=== PATIENT | female | born 1940 | race American Indian/Alaskan Native ===

== ENCOUNTER 2017-04-08 07:59 | Inpatient (IN) | payer MEDICARE ==
[2017-04-08 09:39] LABS: Basophils % (Auto) 1.2 % (0.0-1.8); Eosinophils % (Auto) 4.1 % (0.0-4.3); Hematocrit 35.4 % (30.3-42.9); Hemoglobin 11.6 gm/dl (10.1-14.3); Mean Corpuscular HGB Conc 33 % (30-34); Mean Corpuscular Hemoglobin 30 pg (28-32); Mean Corpuscular Volume 93 fl (79-97); Platelet Count 184 K/mm3 (140-440); Red Blood Count 3.82 M/mm3 (3.65-5.03); White Blood Count 3.6 K/mm3 (4.5-11.0)
[2017-04-08 09:54] LABS: Albumin 3.2 g/dL (3.9-5); Albumin/Globulin Ratio 0.9 %; Bilirubin,Total 0.4 mg/dL (0.1-1.2); Calcium 9.4 mg/dL (8.4-10.2); Chloride 102.2 mmol/L (98-107); Potassium 4.2 mmol/L (3.6-5.0); Total Protein 6.9 g/dL (6.3-8.2)
[2017-04-08 10:00] LABS: Red Cell Distribution Width 20.9 % (13.2-15.2)
--- NOTE | 2017-04-08 11:28 | XRay Report ---
AP CHEST: HISTORY: Hypertension No comparison. Mild cardiomegaly and mild central pulmonary venous congestion are identified. The lungs are clear. No evidence for pneumonia, CHF or pneumothorax. Chronic right rib deformities are suspected. IMPRESSION: Mild cardiomegaly and central pulmonary venous congestion.
--- NOTE | 2017-04-08 11:35 | Emergency Department Report ---
ED General Adult HPI - General Chief complaint: Hypoglycemia Stated complaint: LOW BLOOD SUGAR Time Seen by Provider: 04/08/17 10:25 Source: EMS Mode of arrival: Stretcher Limitations: Altered Mental Status - History of Present Illness Initial comments: The patient was found poorly responsive by her family. EMS was notified. They arrived on the scene and found the patient to be hypoglycemic with a blood glucose of 25. D50 was given. The patient regained consciousness and was transported to the emergency department for further evaluation. She and the family tell me that she has been on glipizide for quite some time her dose and not didn't change. She has been on dialysis for a few months. Her last dialysis was on Friday. She is due today. The patient is a bit slow to respond to questioning. However she is responsive and denies pain. She denies any recent fever. The family state that she does urinate but a small amount. They deny her ever having a significant infection. She does not have a Vas- Cath. She is a chronic dialysis patient of [facility] nephrology. -: hour(s) Severity scale (0 -10): 0 Associated Symptoms: denies other symptoms - Related Data Allergies Allergy/AdvReac Type Severity Reaction Status Date / Time No Known Allergies Allergy Unverified 04/08/17 08:31 ED Review of Systems ROS: Stated complaint: LOW BLOOD SUGAR Other details as noted in HPI Comment: All other systems reviewed and negative Constitutional: denies: chills, fever Eyes: vision change. denies: eye pain, eye discharge ENT: denies: ear pain, throat pain Respiratory: wheezing. denies: cough, shortness of breath Cardiovascular: denies: chest pain, edema Endocrine: no symptoms reported Gastrointestinal: denies: abdominal pain, nausea Genitourinary: denies: urgency, dysuria Musculoskeletal: denies: back pain, myalgia Skin: denies: rash, lesions Neurological: denies: headache, weakness Psychiatric: denies: anxiety, depression Hematological/Lymphatic: denies: easy bleeding, easy bruising ED Past Medical Hx - Past Medical History Additional medical history: End-stage renal on dialysis - Social History Smoking Status: Never Smoker Substance Use Type: None ED Physical Exam - General General appearance: in no apparent distress, lethargic (mildly) - Head Head exam: Present: atraumatic, normocephalic - Eye Eye exam: Present: normal appearance. Absent: scleral icterus - ENT ENT exam: Present: mucous membranes moist, normal external ear exam - Neck Neck exam: Present: normal inspection. Absent: tenderness - Respiratory Respiratory exam: Present: normal lung sounds bilaterally. Absent: respiratory distress - Cardiovascular Cardiovascular Exam: Present: regular rate, normal rhythm. Absent: systolic murmur, diastolic murmur, rubs, gallop - GI/Abdominal GI/Abdominal exam: Present: soft, normal bowel sounds. Absent: distended, tenderness, guarding, rebound, rigid - Extremities Exam Extremities exam: Present: normal inspection. Absent: pedal edema, calf tenderness - Back Exam Back exam: Present: normal inspection - Neurological Exam Neurological exam: Present: oriented X3, CN II-XII intact (as testable). Absent : motor sensory deficit - Psychiatric Psychiatric exam: Present: normal mood, flat affect - Skin Skin exam: Present: warm, dry, intact, normal color. Absent: rash ED Course Vital Signs 04/08/17 08:21 Temperature 97.4 F L Pulse Rate 63 Respiratory 13 Rate Blood Pressure 136/58 Blood Pressure 136/58 [Right] O2 Sat by Pulse 98 Oximetry - Reevaluation(s) Reevaluation #1: Repeat Accu-Chek was 78. The patient was fed. This is her dialysis today. She is on a sulfonylurea. Being that she is a dialysis patient she has at risk for recurrent hypoglycemia. She will be admitted to the hospitalist service. I discussed this with Dr. Richardson and consult did her nephrology group. 04/08/17 11:35 ED Medical Decision Making - Lab Data Result diagrams: 04/08/17 09:09 04/08/17 08:55 Laboratory Results - last 24 hr 04/08/17 04/08/17 04/08/17 08:54 08:55 09:09 WBC 3.6 L RBC 3.82 Hgb 11.6 Hct 35.4 MCV 93 MCH 30 MCHC 33 RDW 20.9 H Plt Count 184 Lymph % (Auto) 19.9 Rock % (Auto) 4.4 Eos % (Auto) 4.1 Baso % (Auto) 1.2 Lymph # 0.7 L Rock # 0.2 Eos # 0.1 Baso # 0.0 Seg Neutrophils % 70.4 H Seg Neutrophils # 2.5 Sodium 141 Potassium 4.2 Chloride 102.2 Carbon Dioxide 25 Anion Gap 18 BUN 35 H Creatinine 7.5 H Estimated GFR 6 BUN/Creatinine Ratio 5 Glucose 94 POC Glucose 101 Calcium 9.4 Total Bilirubin 0.40 AST 14 ALT 5 L Alkaline Phosphatase 57 Total Protein 6.9 Albumin 3.2 L Albumin/Globulin Ratio 0.9 04/08/17 10:49 WBC RBC Hgb Hct MCV MCH MCHC RDW Plt Count Lymph % (Auto) Rock % (Auto) Eos % (Auto) Baso % (Auto) Lymph # Rock # Eos # Baso # Seg Neutrophils % Seg Neutrophils # Sodium Potassium Chloride Carbon Dioxide Anion Gap BUN Creatinine Estimated GFR BUN/Creatinine Ratio Glucose POC Glucose 78 Calcium Total Bilirubin AST ALT Alkaline Phosphatase Total Protein Albumin Albumin/Globulin Ratio Critical care attestation.: If time is entered above; I have spent that time in minutes in the direct care of this critically ill patient, excluding procedure time. ED Disposition Clinical Impression: End-stage renal disease needing dialysis Hypoglycemia secondary to sulfonylurea Qualifiers: Encounter type: initial encounter Injury intent: accidental or unintentional Qualified Code(s): T38.3X1A - Poisoning by insulin and oral hypoglycemic [ antidiabetic] drugs, accidental (unintentional), initial encounter; E16.0 - Drug -induced hypoglycemia without coma; E16.0 - Drug-induced hypoglycemia without coma Disposition: 09 OP ADMIT IP TO THIS HOSP Is pt being admited?: Yes Does the pt Need Aspirin: Yes Condition: Stable Referrals: JHONATHAN BROOKS MD [Primary Care Provider] - 3-5 Days Time of Disposition: 11:38
[2017-04-08] MEDS ORDERED: BABY ASPIRIN PO ONE (11:40)
[2017-04-08] MEDS ORDERED: TYLENOL PO PRN (13:44)
[2017-04-08] MEDS ORDERED: DULCOLAX PR PRN (13:44)
[2017-04-08] MEDS ORDERED: ZOFRAN IV PRN (13:44)
[2017-04-08] MEDS ORDERED: PROVENTIL IH PRN (13:44)
[2017-04-08] MEDS ORDERED: MILK OF MAGNESIA PO PRN (13:44)
--- NOTE | 2017-04-08 13:44 | History and Physical Report ---
History of Present Illness Date of admission: 04/08/17 11:25 Chief complaint: Her blood sugar is low, and not mom is confused History of present illness: 76 YO Female with DM, ESRD on HD presents to ED for evaluation. Pt is confused, and lethargic and unable to provide history. History taken from daughter who is at bedside during exam and interview. As per daughter, the patient was found to be confused and not acting like herself this morning. EMS was notified, and upon arrival the patient was found to have a serum glucose of 25. An ampule of D50 was given with improvement in symptoms. Pt seen and evaluated in ED and found to be lethargic but is able to protect her airway. Pt daughter denies reports of fever, chills, CP,Palpitations, NVD, Syncope, Trauma, productive cough, or recent ill contacts. Pt daughter does acknowledge decreased oral intake over the past 2 days. Past History Past Medical History: diabetes, ESRD Past Surgical History: Other (LUE AVF) Social history: single. denies: smoking, alcohol abuse, prescription drug abuse Family history: hypertension Medications and Allergies Allergies Allergy/AdvReac Type Severity Reaction Status Date / Time No Known Allergies Allergy Verified 04/08/17 13:49 Home Medications Medication Instructions Recorded Confirmed Last Taken Type B Complex 11/Folic/C/Biot/Zinc 1 each PO DAILY 04/08/17 04/08/17 04/07/17 History [Dialyvite with Zinc Tablet] Carvedilol [Coreg] 12.5 mg PO BID 04/08/17 04/08/17 04/07/17 History Cholecalciferol Vit D3 [Vitamin D3] 1,000 unit PO QDAY 04/08/17 04/08/17 History Fluticasone [Flonase] 1 spray NS QDAY 04/08/17 04/08/17 04/07/17 History Hydralazine HCl 50 mg PO TID 04/08/17 04/08/17 04/07/17 History Losartan [Cozaar] 25 mg PO QDAY 04/08/17 04/08/17 04/07/17 History NIFEdipine [Nifedipine ER] 30 mg PO DAILY 04/08/17 04/08/17 04/07/17 History Sevelamer Carbonate [Renvela] 3,600 mg PO TID 1204/08/17 04/07/17 History glipiZIDE [Glipizide] 5 mg PO BID 04/08/17 04/08/17 04/07/17 History Review of Systems ROS unobtainable: due to mental status Exam - Constitutional Vitals: Temp Pulse Resp BP Pulse Ox 97.4 F L 72 16 147/63 98 04/08/17 08:21 04/08/17 12:00 04/08/17 12:00 04/08/17 12:00 04/08/17 12:00 General appearance: Present: mild distress - EENT Eyes: Present: PERRL ENT: hearing intact, clear oral mucosa - Neck Neck: Present: supple, normal ROM - Respiratory Respiratory effort: normal Respiratory: bilateral: diminished - Cardiovascular Heart Sounds: Present: S1 & S2. Absent: rub, click - Extremities Extremities: pulses symmetrical, No edema Peripheral Pulses: within normal limits - Abdominal General gastrointestinal: Present: soft, non-tender, non-distended, normal bowel sounds Female genitourinary: Present: normal - Integumentary Integumentary: Present: clear, warm, dry - Musculoskeletal Musculoskeletal: gait normal, strength equal bilaterally - Psychiatric Psychiatric: appropriate mood/affect, intact judgment & insight - Neurologic Neurologic: CNII-XII intact, moves all extremities Results - Labs CBC & Chem 7: 04/08/17 09:09 04/08/17 08:55 Labs: Abnormal lab results 04/08/17 04/08/17 Range/Units 08:55 09:09 WBC 3.6 L (4.5-11.0) K/mm3 RDW 20.9 H (13.2-15.2) % Lymph # 0.7 L (1.2-5.4) K/mm3 Seg Neutrophils % 70.4 H (40.0-70.0) % BUN 35 H (7-17) mg/dL Creatinine 7.5 H (0.7-1.2) mg/dL ALT 5 L (7-56) units/L Albumin 3.2 L (3.9-5) g/dL Assessment and Plan - Patient Problems (1) Encephalopathy Current Visit: Yes Status: Acute Plan to address problem: metabolic: Secondary to hypoglycemia, neuro checks, supportive care, accu check (2) End-stage renal disease needing dialysis Current Visit: Yes Status: Acute Plan to address problem: Nephrology consulted for dialysis, monitor uop q shift, (3) Hypoglycemia secondary to sulfonylurea Current Visit: Yes Status: Acute Qualifiers: Encounter type: initial encounter Injury intent: accidental or unintentional Qualified Code(s): T38.3X1A - Poisoning by insulin and oral hypoglycemic [antidiabetic] drugs, accidental (unintentional), initial encounter ; E16.0 - Drug-induced hypoglycemia without coma; E16.0 - Drug-induced hypoglycemia without coma Plan to address problem: accu check, hold sulfonylurea, Treat hypoglycemia with D50 prn. (4) DVT prophylaxis Current Visit: Yes Status: Acute
[2017-04-08] MEDS ORDERED: SEVELAMER CARBONATE PO SCH (14:00)
[2017-04-08] MEDS ORDERED: NACL 0.9% 100 ML IV PRN (14:47)
--- NOTE | 2017-04-08 15:01 | Consultation ---
History of Present Illness - Reason for Consult Consult date: 04/08/17 end stage renal disease Requesting physician: NAY RENE - History of Present Illness The patient was found poorly responsive by her family. EMS was notified. They arrived on the scene and found the patient to be hypoglycemic with a blood glucose of 25. D50 was given. The patient regained consciousness and was transported to the emergency department for further evaluation. She and the family tell me that she has been on glipizide for quite some time her dose and not didn't change. She has been on dialysis many years . Her last dialysis was on Friday. She is due today. The patient was a bit slow to respond to questioning. However she is responsive and denies pain. She denies any recent fever. The family state that she does urinate but a small amount. They deny her ever having a significant infection. She undergoes hemodialysis at [facility] on Tuesdays, and Saturdays schedule. Patient mental status has improved significantly after treatment in the emergency room. Past History Past Medical History: diabetes, dialysis, ESRD, hypertension Past Surgical History: Other (history of creation of AV fistula) Social history: other (denies smoking or drinking) Family history: no significant family history Medications and Allergies Allergies Allergy/AdvReac Type Severity Reaction Status Date / Time No Known Allergies Allergy Verified 04/08/17 13:49 Home Medications Medication Instructions Recorded Confirmed Last Taken Type B Complex 11/Folic/C/Biot/Zinc 1 each PO DAILY 04/08/17 04/08/17 04/07/17 History [Dialyvite with Zinc Tablet] Carvedilol [Coreg] 12.5 mg PO BID 04/08/17 04/08/17 04/07/17 History Cholecalciferol Vit D3 [Vitamin D3] 1,000 unit PO QDAY 04/08/17 04/08/17 History Fluticasone [Flonase] 1 spray NS QDAY 04/08/17 04/08/17 04/07/17 History Hydralazine HCl 50 mg PO TID 04/08/17 04/08/17 04/07/17 History Losartan [Cozaar] 25 mg PO QDAY 04/08/17 04/08/17 04/07/17 History NIFEdipine [Nifedipine ER] 30 mg PO DAILY 12/04/08/17 04/07/17 History Sevelamer Carbonate [Renvela] 3,600 mg PO TID 04/08/17 04/08/17 04/07/17 History glipiZIDE [Glipizide] 5 mg PO BID 04/08/17 04/08/17 04/07/17 History Active Meds: Active Medications Acetaminophen (Tylenol) 650 mg PO Q4H PRN PRN Reason: Pain MILD(1-3)/Fever >100.5/CORREA Albuterol (Proventil) 2.5 mg IH Q4HRT PRN PRN Reason: Shortness Of Breath Bisacodyl (Dulcolax) 10 mg SD QDAY PRN PRN Reason: Constipation unrelieved by MOM Carvedilol (Coreg) 12.5 mg PO BID [facility] Cholecalciferol (Vitamin D3) 1,000 unit PO QDAY TESSIE Fluticasone Propionate (Flonase) 50 mcg NS QDAY TESSIE Hydralazine HCl (Apresoline) 50 mg PO TID TESSIE Sodium Chloride (Nacl 0.9%) 100 mls @ 999 mls/hr IV EDMOND PRN PRN Reason: Hypotension Losartan Potassium (Cozaar) 25 mg PO QDAY TESSIE Magnesium Hydroxide (Milk Of Magnesia) 30 ml PO Q4H PRN PRN Reason: Constipation Multivit/Ca Carb/B Cmplx/FA/Prenat (Renal Caps) 1 cap PO QDAY TESSIE Nifedipine (Procardia Xl) 30 mg PO DAILY TESSIE Ondansetron HCl (Zofran) 4 mg IV Q8H PRN PRN Reason: N/V unrelieved by Rosi Sevelamer Carbonate (Renvela) 3,600 mg PO TIDWM TESSIE Review of Systems All systems: negative (except as noted above) Exam - Vital Signs Vital signs: Vital Signs Temp Pulse Resp BP Pulse Ox 97.4 F L 63 13 136/58 98 04/08/17 08:21 04/08/17 08:21 04/08/17 08:21 04/08/17 08:21 04/08/17 08:21 - General Appearance General appearance: well-developed, well-nourished, appears stated age EENT: PERRL, mucous membranes moist Neck: Present: neck supple, trachea midline. Absent: JVD/HJR, Masses Respiratory: Clear to Ascultation Heart: regular, normal heart rate Gastrointestinal: Present: normal, normoactive bowel sounds Integumentary: no rash, other (AV fistula in her left upper arm. Good bruit and thrill) Results - Lab Results 04/08/17 09:09 04/08/17 08:55 Most recent lab results Calcium 9.4 mg/dL (8.4-10.2) 04/08/17 08:55 Assessment and Plan Impression * Hypoglycemia * End-stage renal disease on maintenance hemodialysis * Hypertension * Anemia secondary to ESRD Recommendations * Shall arrange for hemodialysis today * Keep her on Tuesdays, and Friday schedule as outpatient dialysis * Agree with holding her sulfonylureas * Procrit with dialysis * Binders with diet * No IV, BP of any puncture in her access arm * Adjust diet and meds for ESRD state * Thank you very much for the consultation. Shall follow along with you
[2017-04-08] MEDS: APRESOLINE PO SCH ×2 (15:02→23:46)
[2017-04-08] MEDS: RENVELA PO SCH (17:41)
[2017-04-08] MEDS: COREG PO SCH (23:47)
[2017-04-09] MEDS: APRESOLINE PO SCH ×2 (08:21→14:16)
[2017-04-09] MEDS: RENVELA PO SCH ×3 (08:21→17:28)
[2017-04-09] MEDS: COREG PO SCH (09:48)
--- NOTE | 2017-04-09 09:50 | Progress Note ---
Hospitalist Physical - Constitutional Vitals: Temp Pulse Resp BP Pulse Ox 98.7 F 68 18 126/62 99 04/09/17 07:47 04/09/17 07:47 04/09/17 07:47 04/09/17 09:48 04/09/17 07:47 General appearance: Present: mild distress Results - Labs CBC & Chem 7: 04/08/17 09:09 04/08/17 08:55 Labs: Laboratory Last Values WBC 3.6 K/mm3 (4.5-11.0) L 04/08/17 09:09 RBC 3.82 M/mm3 (3.65-5.03) 04/08/17 09:09 Hgb 11.6 gm/dl (10.1-14.3) 04/08/17 09:09 Hct 35.4 % (30.3-42.9) 04/08/17 09:09 MCV 93 fl (79-97) 04/08/17 09:09 MCH 30 pg (28-32) 04/08/17 09:09 MCHC 33 % (30-34) 04/08/17 09:09 RDW 20.9 % (13.2-15.2) H 04/08/17 09:09 Plt Count 184 K/mm3 (140-440) 04/08/17 09:09 Lymph % (Auto) 19.9 % (13.4-35.0) 04/08/17 09:09 Wayne % (Auto) 4.4 % (0.0-7.3) 04/08/17 09:09 Eos % (Auto) 4.1 % (0.0-4.3) 04/08/17 09:09 Baso % (Auto) 1.2 % (0.0-1.8) 04/08/17 09:09 Lymph # 0.7 K/mm3 (1.2-5.4) L 04/08/17 09:09 Wayne # 0.2 K/mm3 (0.0-0.8) 04/08/17 09:09 Eos # 0.1 K/mm3 (0.0-0.4) 04/08/17 09:09 Baso # 0.0 K/mm3 (0.0-0.1) 04/08/17 09:09 Seg Neutrophils % 70.4 % (40.0-70.0) H 04/08/17 09:09 Seg Neutrophils # 2.5 K/mm3 (1.8-7.7) 04/08/17 09:09 Sodium 141 mmol/L (137-145) 04/08/17 08:55 Potassium 4.2 mmol/L (3.6-5.0) 04/08/17 08:55 Chloride 102.2 mmol/L (98-107) 04/08/17 08:55 Carbon Dioxide 25 mmol/L (22-30) 04/08/17 08:55 Anion Gap 18 mmol/L 04/08/17 08:55 BUN 35 mg/dL (7-17) H 04/08/17 08:55 Creatinine 7.5 mg/dL (0.7-1.2) H 04/08/17 08:55 Estimated GFR 6 ml/min 04/08/17 08:55 BUN/Creatinine Ratio 5 % 04/08/17 08:55 Glucose 94 mg/dL (65-100) 04/08/17 08:55 POC Glucose 95 (70-105) 04/09/17 05:10 Calcium 9.4 mg/dL (8.4-10.2) 04/08/17 08:55 Total Bilirubin 0.40 mg/dL (0.1-1.2) 04/08/17 08:55 AST 14 units/L (5-40) 04/08/17 08:55 ALT 5 units/L (7-56) L 04/08/17 08:55 Alkaline Phosphatase 57 units/L (35-129) 04/08/17 08:55 Total Protein 6.9 g/dL (6.3-8.2) 04/08/17 08:55 Albumin 3.2 g/dL (3.9-5) L 04/08/17 08:55 Albumin/Globulin Ratio 0.9 % 04/08/17 08:55
[2017-04-09] MEDS ORDERED: COZAAR PO SCH (10:00)
[2017-04-09] MEDS ORDERED: PROCARDIA XL PO SCH (10:00)
[2017-04-09] MEDS ORDERED: VITAMIN D3 PO SCH (10:00)
[2017-04-09] MEDS ORDERED: FLONASE NS SCH (10:00)
[2017-04-09] MEDS ORDERED: Renal Caps PO SCH (10:00)
[2017-04-09] MEDS ORDERED: NON-FORMULARY (B Complex 11/Folic/C/Biot/Zinc [Dialyvite With Zinc Tablet] 1 EACH) PO SCH (10:00)
--- NOTE | 2017-04-09 13:44 | Progress Note ---
Assessment and Plan Impression * Hypoglycemia * End-stage renal disease on maintenance hemodialysis * Hypertension * Anemia secondary to ESRD Recommendations * Uneventful hemodialysis yesterday * Shall keep her on Tuesdays, and Friday schedule as outpatient dialysis * Agree with holding her sulfonylureas * Procrit with dialysis * Binders with diet * No IV, BP of any puncture in her access arm * Adjust diet and meds for ESRD state * Okay to discharge from renal standpoint Subjective Date of service: 04/09/17 Interval history: Patient is comfortable today. Denies any shortness of breath. Underwent hemodialysis yesterday. Objective - Vital Signs Vital signs: Vital Signs - 12hr 04/09/17 04/09/17 04/09/17 07:47 08:21 09:48 Temperature 98.7 F Pulse Rate 68 Respiratory 18 Rate Blood Pressure 136/60 136/60 126/62 O2 Sat by Pulse 99 Oximetry - General Appearance General appearance: well-developed, well-nourished, appears stated age EENT: PERRL, mucous membranes moist Neck: no JVD, no thyromegaly, no carotid bruit, supple Respiratory: Present: Clear to Ascultation Cardiology: regular, normal heart rate Gastrointestinal: normal, normoactive bowel sounds Integumentary: no rash, other (AVF in her left upper arm. Good bruit and thrill.) - Lab 04/08/17 09:09 04/08/17 08:55 Most recent lab results Calcium 9.4 mg/dL (8.4-10.2) 04/08/17 08:55
--- NOTE | 2017-04-09 15:02 | Discharge Summary ---
Providers - Providers Date of Admission: 04/08/17 11:25 Date of discharge: 04/09/17 Attending physician: SURJIT DON 04/08/17 11:24 Consult to Physician [CONS] Urgent Consulting Provider: JASMYN MARTINS Reason For Exam: ESRD need dialysis Notified:: [email or web address] 04/08/17 15:03 Consult to Wound/ET Nurse [CONS] Routine Reason For Exam: wound eval Primary care physician: JHONATHAN BROOKS Hospitalization Reason for admission: altered level of consciousness/metabolic encephalopathy/ hypoglycemia Condition: Stable Pertinent studies: Chest x-ray; mild cardiomegaly Hospital course: 76-year-old female patient with significant history of Diabetes mellitus and end -stage renal disease on hemodialysis was admitted through emergency room with altered level of consciousness and hypo-glycemia Patient was recently evaluated and admitted to the hospital symptomatically managed Seen by animal trainer supervisor, received hemodialysis per schedule Today she is comfortable in bed, alert awake oriented 3 not in acute distress Vital signs stable, [id number] evaluation physical examination done is unremarkable Clear by nephrology for DC and continue HD per schedule TTS Patient is hemodynamically and clinically stable at discharge Discharge diagnosis; Hypoglycemia; resolved Toxic metabolic encephalopathy; due to hypoglycemia, resolved Hypertension; well controlled End-stage renal disease on hemodialysis; TTS,stable Anemia of chronic kidney disease; stable Disposition: DC-01 TO HOME OR SELFCARE Time spent for discharge: 32 min Core Measure Documentation - Palliative Care Palliative Care/ Comfort Measures: Not Applicable - Core Measures Any of the following diagnoses?: none Exam - Constitutional Vitals: Temp Pulse Resp BP Pulse Ox 98.7 F 68 18 126/62 99 04/09/17 07:47 04/09/17 07:47 04/09/17 07:47 04/09/17 14:16 04/09/17 07:47 General appearance: Present: no acute distress, well-nourished - EENT Eyes: Present: PERRL, EOM intact - Neck Neck: Present: supple, normal ROM - Respiratory Respiratory effort: normal Respiratory: negative: rales, rhonchi, wheezing - Cardiovascular Rhythm: regular Heart Sounds: Present: S1 & S2 - Extremities Extremities: no ischemia, No edema - Abdominal General gastrointestinal: Present: soft, non-tender, non-distended - Integumentary Integumentary: Present: clear, warm - Musculoskeletal Musculoskeletal: strength equal bilaterally - Psychiatric Psychiatric: appropriate mood/affect, cooperative - Neurologic Neurologic: CNII-XII intact, moves all extremities Plan Activity: no restrictions Diet: renal Additional Instructions: Follow renal/hemodialysis per schedule Follow up with: JHONATHAN BROOKS MD [Primary Care Provider] - 3-5 Days SAHRA PARKER MD [Staff Physician] - 7 Days
[2017-04-09 15:57] VITALS: BP 109/58
== END 2017-04-09 18:10 | disposition home or self-care (01) | DRG 91 ==
LOC: ED 07:59 → 2B-ACE 11:25 → 3A 13:00
PROVIDERS: ADMIT Internal Medicine; ATTEND Internal Medicine
PROC: 5A1D70Z Performance of Urinary Filtration, Intermittent, Less than 6 Hours Per Day (ICD-10-PCS; principal; 2017-04-08)
DX: G92 Toxic encephalopathy (principal); N18.6 End stage renal disease; E44.0 Moderate protein-calorie malnutrition; I12.0 Hypertensive chronic kidney disease with stage 5 chronic kidney disease or end stage renal disease; D63.1 Anemia in chronic kidney disease; Z99.2 Dependence on renal dialysis; E11.649 Type 2 diabetes mellitus with hypoglycemia without coma; T38.3X5A Adverse effect of insulin and oral hypoglycemic [antidiabetic] drugs, initial encounter; Y92.89 Other specified places as the place of occurrence of the external cause; E16.0 Drug-induced hypoglycemia without coma; Z82.49 Family history of ischemic heart disease and other diseases of the circulatory system; Z68.26 Body mass index [BMI] 26.0-26.9, adult
CPT/HCPCS: 36415; 71010; 80053; 82962; 85025; 93005; 93010